=== PATIENT | female | born 1980 | race Caucasian/White ===

== ENCOUNTER 2018-03-23 17:09 | Emergency (ER) | payer SELFPAY ==
[2018-03-23] MEDS ORDERED: TDAP ADULT 0.5 ML INJ (BOOSTRIX) IM ONE (17:18)
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
[2018-03-23 18:20] VITALS: BP 115/89
== END 2018-03-23 18:30 | disposition home or self-care (01) ==
LOC: EDUNIT# → EDBD
DX: S01.81XA Laceration without foreign body of other part of head, initial encounter (principal); S01.01XA Laceration without foreign body of scalp, initial encounter; B19.20 Unspecified viral hepatitis C without hepatic coma; V18.0XXA Pedal cycle driver injured in noncollision transport accident in nontraffic accident, initial encounter; Y92.9 Unspecified place or not applicable; F17.200 Nicotine dependence, unspecified, uncomplicated; Z59.0 Homelessness

== ENCOUNTER 2018-11-12 03:01 | Emergency (ER) | payer MEDICAID, OTHER ==
[2018-11-12 03:06] VITALS: BP 133/83
[2018-11-12] MEDS: NS 1,000 ML IV ONE (03:09)
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
[2018-11-12 03:17] LABS: PLATELET COUNT 297 10^3/uL (150-400)
== END 2018-11-12 06:02 | disposition home or self-care (01) ==
LOC: EDUNIT#
DX: G40.909 Epilepsy, unspecified, not intractable, without status epilepticus (principal); E86.9 Volume depletion, unspecified; F19.10 Other psychoactive substance abuse, uncomplicated; Z59.0 Homelessness
CPT/HCPCS: 80305